=== PATIENT | female | born 1960 | race Caucasian/White ===

== ENCOUNTER 2017-01-30 02:21 | Inpatient (IN) | payer MEDICAID ==
[~2017-01-30] VITALS: Ht 167.6 cm; Wt 174.2 kg
--- NOTE | ~2017-01-30 | HP ---
PATIENT'S NAME: SIMON MEADE [facility] AGE: 56 Y [address] ROOM: [place] [address] LOCATION: GPCU ADMIT DATE: 01/30/2017 History & Physical DISCHARGE DATE: FAMILY PHYSICIAN: PHYSICIAN, UNKNOWN ATTENDING PHYSICIAN: MARK OSEGUERA V DATE OF SERVICE: CHIEF COMPLAINT: Purple fingers and chest pain. HISTORY OF PRESENT ILLNESS: The patient is a 56-year-old female, who has been transferred here from [place]. She has a past medical history of factor V Leiden with recurrent DVTs and PEs. In fact, the patient was found to have 2 new DVTs recently and was switched from Lovenox to Xarelto. This was approximately 10 days ago. Since then, she has been having episodes of discoloration and coldness of her fingers associated with hot flashes, as well as reddish discoloration of her face, as well as some "internal tremors." Today, she also developed left-sided flank pain and came to the ER in [place]. Initial suspicion was for recurrent PE, but a repeat CT of her chest with contrast revealed a chronic previously noted PE in the right basal lobar artery, as well as unchanged patchy ground-glass infiltrates in the left upper and right mid and lower lobes with a differential of fibrosis versus indwelling adenocarcinomas in C2. At the time of her evaluation in [place], as communicated to me by the provider there, she had profoundly discolored purplish fingertips with delayed capillary refill, but preserved pulses. At this point, I still appreciate some bluish discoloration, though certainly was worse before as described to me and as conveyed by her. I do not appreciate any discoloration or delayed capillary refill in her feet, however. She denies any worsening chest pain, nausea, vomiting, or syncope. The left flank pain, with which she presented, is actually well-reproducible and is associated with a collection of subscapular muscles. REVIEW OF SYSTEMS: All 10 systems have been reviewed and are negative aside from pertinent positives mentioned above. PAST MEDICAL HISTORY: Significant for: 1. Factor V Leiden, recurrent DVTs, PEs. PATIENT'S NAME: SIMON MEADE [facility] AGE: 56 Y [address] ROOM: [place] [id number] LOCATION: GPCU ADMIT DATE: 01/30/2017 History & Physical DISCHARGE DATE: FAMILY PHYSICIAN: PHYSICIAN, UNKNOWN ATTENDING PHYSICIAN: MARK OSEGUERA V 2. Aparna filter. 3. Essential hypertension. 4. Restless legs syndrome. 5. Super-morbid obesity due to excess calories. 6. Status post lap band. CURRENT MEDICATIONS: Being compiled by the nursing staff, but include Xarelto. PAST SURGICAL HISTORY: As above. FAMILY HISTORY: Significant for lung cancer in her mother at the age of 60 and quadruple bypass in her father in his 60s as well. PHYSICAL EXAMINATION: VITAL SIGNS: Blood pressure of 160/70, heart rate is in the 70s, saturating 96% on room air, afebrile, respirations are 16. GENERAL: Appears as morbidly obese, middle-aged female, in no acute distress. NEUROLOGIC: Nonfocal. HEENT: Eye exam shows pupils are equal and reactive to light. LYMPHATICS: No cervical lymphadenopathy. ENDOCRINE: No thyromegaly. LUNGS: Crackles in the right base, which are concordant with location of chronic PE. HEART: Regular rate and rhythm without appreciable murmurs, gallops, or rubs. GI: Abdomen is soft, nontender, nondistended. : No costovertebral angle tenderness. VASCULAR: 2+ pedal pulses as well as 2+ radial and ulnar pulses. SKIN: Some slight purplish discoloration of her fingertips with slightly delayed capillary refill. PSYCHIATRIC: Blunted affect and preserved mood and cognition. MUSCULOSKELETAL: An area of tenderness and a muscle knot right below her left scapula. LABORATORY DATA: Studies from the outside facility in addition to the CT are significant for an unremarkable CBC. A complete metabolic profile showing a BUN of 30, creatinine of 1.3, alkaline phosphatase is 186. EKG shows normal sinus rhythm at 89 beats per minute with no appreciable ST-segment or T-wave abnormalities. ASSESSMENT AND PLAN: This is a 56-year-old female, who will be admitted with: 1. Apparent Raynaud phenomenon after starting Xarelto. At this point, we PATIENT'S NAME: SIMON MEADE [facility] AGE: 56 Y [address] ROOM: [address] [address] LOCATION: GPCU ADMIT DATE: 01/30/2017 History & Physical DISCHARGE DATE: FAMILY PHYSICIAN: PHYSICIAN, UNKNOWN ATTENDING PHYSICIAN: MARK OSEGUERA V will certainly continue the patient on Xarelto. We will consider a Hematology consultation though I do not appreciate Raynaud's as a documented adverse reaction or side effect of Xarelto. We will request additional guidance from the Hematology consultation. We will consider starting the patient on calcium channel blockers for her presumed Raynaud. Hopefully, we can capture one of these episodes here. 2. Flank pain. This is musculoskeletal and we will provide her with a heating pad. 3. Elevated creatinine. The patient is not aware of any standing kidney issues. We will have to trend that and possibly hydrate her. Though we may have to pursue acute kidney injury/chronic kidney disease workup. 4. History of factor V Leiden with recurrent thromboembolism. We will continue the patient on anticoagulation. 5. Super-morbid obesity noted. 6. Essential hypertension. We will consider increasing her blood pressure medications versus adding Cardizem for her Raynaud's. 7. Additional management will depend on clinical course. 8. Potential adenocarcinoma in situ as read on the CAT scan. The patient will need a central communications specialist followup as outpatient. Findings appear to be stable, however. Time dedicated to this patient's encounter is 35 minutes. MD JHONATHAN CLAY/pina /[id number] D: 747 T: 437 HISTORY & PHYSICAL
--- NOTE | ~2017-01-30 | CON ---
PATIENT'S NAME: SIMON MEADE [facility] AGE: 56 Y [address] ROOM: [place] [address] LOCATION: GPCU ADMIT DATE: 01/30/2017 Consultation DISCHARGE DATE: 01/31/2017 FAMILY PHYSICIAN: Tara Perez ATTENDING PHYSICIAN: Kain Tsang DATE OF CONSULTATION: 01/31/2017 REFERRING PHYSICIAN: Roberto Benton MD INDICATION: Abnormal CT. HISTORY OF PRESENT ILLNESS: This is a 56-year-old female transferred from [place] with a history of factor V Leiden with multiple PEs and DVTs. She reports her last PE was about 8 years ago. She says that she has been on Lovenox for quite some time and then recently developed right knee pain and was subsequently found to have a new right leg DVT. At that time, she was changed to Xarelto which was about 10 days ago. Since then, she reports with any exertion. At work, she developed shortness of breath, ice cold hands that turn purple, internal shaking and trouble with her speech, as well as a redness in her cheeks. If she stops what she is doing, she returns to baseline after "warming" up. Yesterday along with the above-mentioned symptoms she also developed left-sided flank pain; therefore, she presented to the ER for further evaluation. CT of the chest showed chronic PE which was unchanged along with ground-glass opacities in the left upper, right mid and lower lobes. Currently, overall the patient denies any coughing, wheezing, hemoptysis, or edema. She has no history of asthma, COPD, or smoking. PAST MEDICAL HISTORY: 1. Includes factor V Leiden with recurrent DVTs and PEs. 2. [place] filter. 3. Hypertension. 4. Restless legs syndrome. 5. Morbid obesity. 6. History of lap band. ALLERGIES: SEE MAR. MEDICATIONS: See MAR. FAMILY HISTORY: Significant for lung cancer in her mother at the age of 60 and CAD in her PATIENT'S NAME: SIMON MEADE [facility] AGE: 56 Y [address] ROOM: [place] [address] LOCATION: GPCU ADMIT DATE: 01/30/2017 Consultation DISCHARGE DATE: 01/31/2017 FAMILY PHYSICIAN: Tara Perez ATTENDING PHYSICIAN: Kain Tsang A father. SOCIAL HISTORY: The patient works at the [employer] and denies any history of tobacco or alcohol use. REVIEW OF SYSTEMS: A 12-point review of systems negative except for what is noted in the HPI. PHYSICAL EXAMINATION: VITAL SIGNS: Blood pressure 139/74, pulse 94, respirations 20, temperature 98.5, she is 93% on room air. GENERAL: This is a 56-year-old well-developed, well-nourished, morbidly obese female who is alert and oriented x3 and appears in no acute distress at the time of exam. HEENT: Head; normocephalic and atraumatic. Eyes, clear. NECK: Supple. No adenopathy. No carotid bruits or JVD. LUNGS: Decreased breath sounds at the bases but overall clear. HEART: Regular rate and rhythm without murmur, gallop, or rub. ABDOMEN: Soft, nontender, nondistended. Bowel sounds x4. EXTREMITIES: No cyanosis, clubbing, or edema. DIAGNOSTIC DATA: Includes sodium 142, potassium 4.2, bicarb 24, BUN 26, creatinine 1. Procalcitonin 0.24. Rheumatoid factor negative. WBC 5, hemoglobin 11.3, hematocrit 36.2, platelets 180. JO ANN is pending. We reviewed the multiple chest CT images going back to 2007 in our system that showed stable bilateral opacities. ASSESSMENT: 1. Abnormal chest CT, most likely chronic pulmonary infarcts versus other inflammatory condition. Overall, this is very unlikely to be adenocarcinoma as it has not had a significant change in almost 10 years. 2. Recurrent deep venous thrombosis and pulmonary embolism, on Xarelto. 3. Factor V Leiden mutation leading to recurrent deep venous thrombosis and pulmonary embolism. 4. Morbid obesity. 5. History of obstructive sleep apnea with excessive daytime sleepiness. PLAN: Overall, no need for biopsy at this time. Would recommend repeating a chest CT in six months, and if no change, would not pursue further chest CTs. Will need to follow up on the final results of her blood test and recommend adding hypersensitivity pneumonitis panel to previous lab work. For her excessive daytime sleepiness and history of NII, she will need a sleep study as an PATIENT'S NAME: SIMON MEADE [facility] AGE: 56 Y [address] ROOM: [address] [address] LOCATION: GPCU ADMIT DATE: 01/30/2017 Consultation DISCHARGE DATE: 01/31/2017 FAMILY PHYSICIAN: Tara Perez ATTENDING PHYSICIAN: Kain Tsang outpatient. Overall, she is stable to be discharged from a pulmonary standpoint at this time. Thank you for the consult and opportunity to participate in this patient's care. KAILASH SERRANO APRN FOR DIANA GONZALEZ MD [facility]/modl /[id number] d: 02/16/17 0149 t: 03/01/17 1651, CONSULTATION REPORT
--- NOTE | ~2017-01-30 | CON ---
PATIENT'S NAME: SIMON MCNEILL [facility] AGE: 56 Y [address] ROOM: [address] [address] LOCATION: GPCU ADMIT DATE: 01/30/2017 Consultation DISCHARGE DATE: 01/31/2017 FAMILY PHYSICIAN: Tara Perez ATTENDING PHYSICIAN: Adin Szymanski V REFERRING PHYSICIAN: Roberto Benton MD This is a consult to Dr. Szymanski. Simon Mcneill is a 56-year-old woman, seen for evaluation of uncharacterized cyanosis of the tips of her fingers with a history of longstanding anticoagulation for deep venous thromboses and pulmonary emboli noted around 1988. Ms. Mcneill is hospitalized because she developed left chest pain on 01/30/2017 while working at the [employer]. The patient was seen in the [place] [facility] and a CAT scan of the chest was obtained, which revealed chronic changes in the right basal lobar artery compatible with an old pulmonary emboli. In [place], the patient had bluish discoloration of the tips of her fingers beyond the DIPs, though she had no pain. The patient had noticed this discoloration in this distribution throughout her shift at the [employer] over the past week and the possibility that this was a complication of rivaroxaban was contemplated since the patient had not experienced this discoloration in the past. The patient was transferred to [facility]. In [place], the CBC with differential was unremarkable. A complete metabolic profile was remarkable for an elevated alkaline phosphatase of 186 and a creatinine of 1.3 mg/dL. The patient reported when she was seen in [facility], the discoloration of the fingers had resolved. The CBC with differential at the [facility] was unremarkable this morning. The BMP was unremarkable this morning. The creatinine was down to 1. The quantitative rheumatoid factor at [facility] was less than 10 IU/mL. Ms. Mcneill first experienced deep venous thrombosis around 1988 following a motor vehicle trip from [place] to [place]. She developed deep venous thrombosis in her right leg. She was placed on heparin and then warfarin and was on these medications for approximately 13 years. Her warfarin had to be titrated up and down and ultimately, in the early 1999s, around 2001, she was placed on fondaparinux. The patient did well on fondaparinux with little bleeding or little in the way of complications. She saw Dr. Page Richmond annually. Dr. Richmond checked a heparin anti-Xa annually. On 01/26/2016, the level was 1.22 IU/mL, which was within normal limits for a patient taking myo-cwughabkl-oxmyyg heparin. The fondaparinux was apparently continued uneventfully until early January 2017 when the patient developed discomfort in her right leg. At that time, sonography in [place] revealed deep venous thrombosis. The patient is not sure the sonogram was compared to an earlier PATIENT'S NAME: SIMON MCNEILL [facility] AGE: 56 Y [address] ROOM: [place] [address] LOCATION: GPCU ADMIT DATE: 01/30/2017 Consultation DISCHARGE DATE: 01/31/2017 FAMILY PHYSICIAN: Tara Perez ATTENDING PHYSICIAN: Adin Szymanski V sonogram as she does not think she has ever had a sonogram in [place]. Her fondaparinux was discontinued and she was placed on rivaroxaban. The patient is concerned her rivaroxaban led to the discoloration in her digits and there is a concern the patient has the Raynaud phenomena. The patient currently lives in [place], [place], with her and another lodger. She works at the [employer] in [place], [place]. ACTIVE MEDICAL PROBLEMS, CHRONIC AND DIAGNOSED: 1. Class 3 obesity. The BMI is 61.5 kg/m2. 2. Arterial hypertension. The patient is currently on amlodipine for her hypertension. 3. Factor V Leiden mutation conferring resistance to activated protein-C. The patient does not know whether she is homozygous or heterozygous. Two relatives have experienced complications from thrombosis and have the Factor V Leiden mutation. 4. Presence of a Aparna filter. 5. Restless legs syndrome. ACUTE MEDICAL ILLNESSES (RESOLVED), PAST SURGERIES, INJURIES: Lap band surgery. MEDICATIONS UPON ADMISSION: 1. Rivaroxaban 15 mg p.o. b.i.d. 2. Acetaminophen p.r.n. 3. Albuterol inhaler p.r.n. 4. Alprazolam 1 mg p.o. b.i.d. 5. Aripiprazole 15 mg p.o. q.h.s. 6. Carbidopa levodopa 1 tablet p.o. q.h.s. 7. Colestipol 2 tablets 2 grams p.o. daily. 8. Duloxetine 60 mg p.o. b.i.d. 9. Fluticasone 1 spray nasally daily. 10. Gabapentin 600 mg p.o. t.i.d. 11. Lactobacillus. 12. Loperamide 2 mg every 4 hours as needed. 13. Loratadine 10 mg daily. 14. Mesalamine 1.5 p.o. daily. 15. KCl 20 mEq p.o. daily. 16. Ropinirole 3 mg p.o. b.i.d. 17. Bactrim DS 1 p.o. b.i.d. x4 days. 18. Tizanidine 4 mg p.o. q.h.s. 19. Topiramate 50 mg p.o. b.i.d. 20. Tramadol 50 to 100 p.o. t.i.d. 21. Valacyclovir 1000 mg p.o. every 8 hours p.r.n. for cold sores. PATIENT'S NAME: SIMON MCNEILL [facility] AGE: 56 Y [address] ROOM: [place] [address] [facility] ADMIT DATE: 01/30/2017 Consultation DISCHARGE DATE: 01/31/2017 FAMILY PHYSICIAN: Tara Perez ATTENDING PHYSICIAN: Adin Szymanski V ADVERSE REACTIONS TO MEDICATIONS: 1. Neomycin. 2. Bacitracin. 3. Venlafaxine (increased depression). 4. Quetiapine (increased depression). 5. Polymyxin B. TOBACCO: None. ALCOHOL: History not obtained. REVIEW OF SYSTEMS: Negative other than those noted in the history of present illness. PHYSICAL EXAMINATION: VITAL SIGNS: Pulse 84 and regular, blood pressure 135/65, respiratory rate 20, temperature 98.4, SPO2 of 95% on room air, height 66 inches, weight 172.8 kg (380 pounds), and BMI 62 kg/m2. GENERAL: Well-developed, obese, 56-year-old, female, in no acute distress. HEENT: Unremarkable. LYMPH NODES: None palpable in the cervical chain. SKIN: Unremarkable. CHEST: Decreased breath sounds bilaterally. CV: Decreased S1 and S2. No murmurs, bruits, or adventitious sounds. BREASTS: Pendulous. Not examined. ABDOMEN: Healed scar from the lap banding. Obese. EXTREMITIES: Bilateral brawny edema. No discoloration in the toes or fingers. No cyanosis. Homans sign negative. IMPRESSION: 1. Discoloration, etiology undetermined. I am not certain this is due to Raynaud phenomena. It was not associated with cold and the patient did not experience discomfort or this is what she says today. Raynaud phenomena is not generally associated with rivaroxaban to my knowledge. 2. Dr. Richmond will have a decision to make when the patient is seen next week. Rivaroxaban is generally not used in patients who have a body mass index greater than 40 kg/m2 due to lack of clinical data in this population. It is not clear the fondaparinux was at a therapeutic dose when it was discontinued 10 days ago in [place] and would have been reasonable to check anti-Xa activity to see if the patient was subtherapeutic. It would also have been reasonable to compare the most PATIENT'S NAME: SIMON MCNEILL [facility] AGE: 56 Y [address] ROOM: [place] [address] [facility] ADMIT DATE: 01/30/2017 Consultation DISCHARGE DATE: 01/31/2017 FAMILY PHYSICIAN: Tara Perez ATTENDING PHYSICIAN: Adin Szymanski V recent sonogram with an earlier sonogram, this might well have been done. PLAN: Diagnostic: 1. The patient will see Dr. Richmond in 1 week. She is ready for dismissal at this point. These arrangements have been made. 2. We will try to obtain the sonogram report as well as the records related to her recent switch from fondaparinux to rivaroxaban and rationale for fondaparinux which may be losing something the translation. Treatment: Continue rivaroxaban 15 mg p.o. b.i.d. for now. PATIENT EDUCATION: Encouraged her to keep her appointment with Dr. Richmond next week. MD NELIA PINA/pina /[id number] CC: CALVIN Guzman d: 02/01/17 0014 t: 02/02/17 1340, CONSULTATION REPORT
--- NOTE | ~2017-01-30 | DS ---
PATIENT'S NAME: SIMON MEADE [facility] AGE: 56 Y [address] ROOM: [address] [place], [place] [address] LOCATION: GPCU ADMIT DATE: 01/30/2017 Discharge Summary DISCHARGE DATE: 01/31/2017 FAMILY PHYSICIAN: Tara Perez ATTENDING PHYSICIAN: Adin Szymanski V PRINCIPAL DIAGNOSES: 1. Raynaud's phenomenon, unclear etiology primary or secondary. 2. Acute cystitis. 3. Acute kidney injury. 4. Morbid obesity. 5. Essential hypertension. 6. Ground glass opacities, abnormal chest CT. 7. History of deep vein thrombosis and pulmonary embolism with factor V Leiden. 8. Obstructive sleep apnea. HOSPITAL COURSE: A 56-year-old lady was transferred from [place], [place] with a past medical history factor V today with recurrent DVTs and PEs. She was recently switched from Lovenox to Xarelto for chief complaint of discoloration and blueness of her fingers associated with hot flashes as well as reddish discoloration of the face. She also complained of left-sided flank pain. We admitted this patient to the [facility] and a CAT scan of the chest was done, which did not reveal any acute pulmonary embolism, but did reveal previous chronic PE. She always have multiple unchanged ground-glass patchy opacities and the radiology read one of the differential diagnosis of adenocarcinoma in situ. She was admitted to our progressive care unit. We stop her beta alta and start her on amlodipine to control blood pressure as well as Raynaud phenomena. Unclear etiology at this point and we have sent all the rheumatological workup and send out lab and most of it is pending at this point. That needs to be followed by the primary care physician. Pulmonology consultation was obtained regarding evaluation of ground glass patchy opacities and I think that this is secondary to the pulmonary embolism infarcts in the past. They did recommend [address] follow up with a primary care physician at this point. We will have her have a followup with PCP with those labs as well as we will have her follow up with Dr. Richmond who is her pig lead melter helper regarding the factor Leiden V. she also had urinary urgency on admission. UA was obtained, which was grossly positive for pyuria. She was started on Rocephin, which she received one dose. Her urine sample was mostly consistent with contaminants. We are going to send her home on Bactrim for 4 more days. NEW MEDICATION: 1. Potassium chloride 20 milliequivalent p.o. every day. 2. Alprazolam 1 mg p.o. twice daily. PATIENT'S NAME: SIMON MEADE [facility] AGE: 56 Y [address] ROOM: [place] [address] LOCATION: GPCU ADMIT DATE: 01/30/2017 Discharge Summary DISCHARGE DATE: 01/31/2017 FAMILY PHYSICIAN: Tara Perez ATTENDING PHYSICIAN: Adin Szymanski V 3. Lisinopril 10 mg p.o. every day. 4. Amlodipine 10 mg p.o. every day. 5. Abilify 50 mg p.o. every night at bedtime. 6. Colestipol 2 g p.o. every day. 7. Duloxetine 60 mg p.o. twice daily. 8. Fluticasone/Flonase 50 mcg one spray nose every day p.r.n. 9. Gabapentin 600 mg p.o. 3 times daily. 10. Loratadine 10 mg p.o. every day. 11. Rivaroxaban 15 mg p.o. b.i.d. 12. Tizanidine 4 mg p.o. every night at bedtime. 13. Topamax 50 mg p.o. twice daily. 14. Ropinirole 6 mg p.o. twice daily. 15. Lasix 40 mg p.o. every day. We are going to hold this medication on discharge: 1. Carbidopa levodopa 2500 mg 1 tablet p.o. every night at bedtime. 2. Valacyclovir 1000 mg p.o. every 8 hours for the breakouts. 3. Tramadol 50 to 100 mg p.o. 3 times daily. 4. Loperamide 2 mg p.o. every 4 hours p.r.n. 5. Mesalamine 0.375 g daily. 6. Tylenol 500 mg p.o. every 6 hours p.r.n. 7. Albuterol 8.5 mg 2 puffs inhalation every 6 hours. New medication: Bactrim DS b.i.d. for 4 days. She can see her primary care physician and then Lasix can be restarted as her creatinine was elevated and she did have acute kidney injury during this hospitalization. DIET: Low-sodium diet. FOLLOWUP: Follow up as mentioned in the hospital course. Hemodynamics on discharge is stable. We spent 40 minutes in discharge planning and discharge care of this patient. MD YULY PAYNE/pina /[id number] d: 02/01/17 0842 t: 02/04/17 1503, DISCHARGE SUMMARY
[~2017-01-30 02:21] MED LIST: ABILIFY15 MG PO; ABILIFY2 MG PO; ADDERALL 20 MG20 MG PO; CLARITIN10 M3 PO; CYMBALTA30 MG PO; FEOSOL325 MG PO; FONDAPARINUX SUB-Q; K-TAB ER20 MEQ PO; LASIX40 MG PO; LEXAPRO10 MG PO; LISINOPRIL10 MG PO; MOTRIN600 MG PO; NEURONTIN600 MG PO; PROTONIX40 MG PO; REQUIP3 MG PO; SINEMET 25-1001 EACH PO; TOPAMAX50 MG PO; TOPROL XL25 MG PO; TRAMADOL HCL50 MG PO; VALTREX1000 MG PO; XANAX1 MG PO; ZANAFLEX4 MG PO
--- NOTE | 2017-01-30 06:48 | NUR ---
ADMIT NOTE: A/O X 3. COLOR FLUSHED. SKIN W/D. ARRIVED FROM [facility], VIA AMBULANCE. C/O HANDS BEING COLD/PURPLE. HAS LT. LOWER BACK/SIDE PAIN. NO CHEST PAIN. SHORT OF BREATH ALL THE TIME. FACTOR 5 LYDIN DISEASE. HX;OF PE X 4 AND CARMEN. LOWER EXT. DVTS. CT OF CHEST NORMAL FROM [facility]. PLAN: CONT. CARES AT [facility]
[2017-01-30] MEDS ORDERED: COLESTID1 GM PO (07:34)
[2017-01-30] MEDS ORDERED: FLONASE 50 MCG/16 GM NOSE (07:35)
[2017-01-30] MEDS ORDERED: IMODIUM2 MG PO (07:43)
[2017-01-30] MEDS ORDERED: APRISO0.375 GM PO (07:44)
[2017-01-30] MEDS ORDERED: XARELTO15 MG PO ×2 (07:45→07:46)
[2017-01-30] MEDS ORDERED: TYLENOL EXTRA500 MG PO (07:45)
[2017-01-30 10:17] LABS: BASOPHIL % 0.7 %; EOSINOPHIL # 0.6 K/uL (0.0-0.5); EOSINOPHIL % 11.5 %; HEMATOCRIT 37.7 % (33.0-46.0); HEMOGLOBIN 11.9 g/dL (10.0-15.0); IMMATURE GRANULOCYTE % 0.4 %; LYMPHOCYTE % 18.9 %; MCH 29.9 pg (27.0-34.0); MCHC 31.6 gm/dL (32.0-36.5); MCV 94.7 fl (83.0-98.0); MONOCYTE # 0.5 K/uL (0.0-1.0); MONOCYTE % 8.5 %; NEUTROPHIL # (ANC) 3.3 K/uL (1.8-7.8); NRBC % 0 /100WBC (0-0.00); PLATELET COUNT 180 K/uL (150-450); RDW-CV 13.6 % (11.9-14.6); WBC 5.5 K/uL (4.0-11.0)
[2017-01-30 10:18] LABS: RBC 3.98 M/uL (3.50-5.50)
[2017-01-30 11:04] LABS: ANION GAP 11.9 (10.0-19.0); CALCIUM 8.4 mg/dL (8.5-10.5); CREATININE 1.2 mg/dL (0.5-1.1); MAGNESIUM 1.9 mg/dL (1.8-2.6); PHOSPHORUS 3.3 mg/dL (2.5-4.9); POTASSIUM 3.9 mMol/L (3.7-5.1)
[2017-01-30 18:19] LABS: BASOPHIL % 0.8 %; EOSINOPHIL # 0.7 K/uL (0.0-0.5); EOSINOPHIL % 14.7 %; HEMATOCRIT 39.6 % (33.0-46.0); HEMOGLOBIN 12.3 g/dL (10.0-15.0); IMMATURE GRANULOCYTE % 0.2 %; LYMPHOCYTE # 1.2 K/uL (0.8-4.0); LYMPHOCYTE % 23.3 %; MCH 29.7 pg (27.0-34.0); MCHC 31.1 gm/dL (32.0-36.5); MCV 95.7 fl (83.0-98.0); MONOCYTE # 0.4 K/uL (0.0-1.0); MONOCYTE % 8.2 %; MPV 10.5 fl (9.4-12.4); NEUTROPHIL # (ANC) 2.6 K/uL (1.8-7.8); NEUTROPHIL % 52.8 %; NRBC % 0 /100WBC (0-0.00); PLATELET COUNT 186 K/uL (150-450); RBC 4.14 M/uL (3.50-5.50); RDW-CV 13.6 % (11.9-14.6)
--- NOTE | 2017-01-30 19:26 | NUR ---
PATIENT UP TO BR W/ 1 ASSIST, UNSTEADY AND C/O RIGHT FOOT PAIN WHEN AMBULATING. NO C/O PAIN WHEN AT REST. SHORT OF BREATH, NO CHEST PAIN. VSS, SATS MID 90'S ON RA. PULMONOLOGY AND HEMATOLOGY CONSULT, DR RAE STATED HE NOTIFIED. DR RAE NOTIFIED OF 18:00 LABS, WITH NO NEW ORDERS.
[2017-01-30 20:08] LABS: BILIRUBIN URINE NEGATIVE (NEGATIVE); BLOOD URINE 10 /UL (NEGATIVE); COLOR URINE YELLOW (YELLOW); GLUCOSE URINE NEGATIVE (NEGATIVE); KETONE URINE NEGATIVE (NEGATIVE); LEUKOCYTES URINE 500 /UL (NEGATIVE); NITRITE URINE NEGATIVE (NEGATIVE); PROTEIN URINE NEGATIVE (NEGATIVE); TURBIDITY URINE 2+ (CLEAR); UROBILINOGEN URINE NORMAL (NORMAL)
[2017-01-30 20:21] LABS: RBC URINE 0-2 #/HPF (NEGATIVE)
[2017-01-30 20:23] LABS: AMORPHOUS URINE 1+ (NEGATIVE); BACTERIA URINE FEW (NEGATIVE); EPITHELIAL URINE 20-50 #/HPF (NEGATIVE)
[2017-01-31 03:20] LABS: BASOPHIL % 0.6 %; EOSINOPHIL # 0.8 K/uL (0.0-0.5); EOSINOPHIL % 16.5 %; HEMATOCRIT 36.2 % (33.0-46.0); HEMOGLOBIN 11.3 g/dL (10.0-15.0); IMMATURE GRANULOCYTE % 0.4 %; LYMPHOCYTE # 1.6 K/uL (0.8-4.0); LYMPHOCYTE % 31.9 %; MCH 29.7 pg (27.0-34.0); MCHC 31.2 gm/dL (32.0-36.5); MCV 95.3 fl (83.0-98.0); MONOCYTE # 0.5 K/uL (0.0-1.0); MPV 10.3 fl (9.4-12.4); NEUTROPHIL # (ANC) 2.1 K/uL (1.8-7.8); NEUTROPHIL % 41.6 %; NRBC % 0 /100WBC (0-0.00); PLATELET COUNT 180 K/uL (150-450); RDW-CV 13.5 % (11.9-14.6)
[2017-01-31 03:39] LABS: ANION GAP 10.2 (10.0-19.0); CALCIUM 8.6 mg/dL (8.5-10.5); POTASSIUM 4.2 mMol/L (3.7-5.1)
--- NOTE | 2017-01-31 04:20 | NUR ---
Significant Event: PATIENT IS A/O X3. VSS. HR'S 70-80'S. SBP 120'S. AFEBRILE. 02 SATS IN MID 90'S ON RA. NO C/O PAIN. LUNGS CLEAR THROUGHOUT. VERY SOB WITH ACTIVITY. C/O RIGHT FOOT PAIN WITH AMBULATION. BOWELS ACTIVE. C/O LOOSE STOOLS. HAS URGENCY IN VOID ALONG WITH SOME STRESS INCONTINENCE. COMMODE AT BEDSIDE. NEW HAT IN COMMODE TO COLLECT A UA. NEW IV TO RIGHT THUMB WITH LR AT 75ML/HR. CONTINUES TO HAVE GENERALIZED 1+ EDEMA. Follow up: PULMONOLGY/HEMETOLOGY CONSULTS IN AM.
[2017-01-31] MEDS ORDERED: PROAIR HFA8.5 GM INH (09:55)
--- NOTE | 2017-01-31 13:12 | NUR ---
1154 Stopped by to see Kristi, but per DIAL POLISHER she was in the shower. Will try to stop back by and see later today or tomorrow. CM to continue to follow and assist.
[2017-01-31] MEDS ORDERED: NORVASC10 MG PO (16:48)
[2017-01-31] MEDS ORDERED: BACTRIM DS1 TAB PO (17:00)
[2017-01-31] MEDS ORDERED: PROBIOTIC1 EAC1 PO (17:02)
== END 2017-01-31 18:40 | disposition disaster alternative care site (69) | DRG 546 ==
LOC: GPCU 02:21
PROVIDERS: Internal Medicine; ADMIT Internal Medicine
DX: I73.00 Raynaud's syndrome without gangrene (principal); Z68.44 Body mass index [BMI] 60.0-69.9, adult; D68.2 Hereditary deficiency of other clotting factors; N30.00 Acute cystitis without hematuria; I82.491 Acute embolism and thrombosis of other specified deep vein of right lower extremity; E66.01 Morbid (severe) obesity due to excess calories; I10 Essential (primary) hypertension; Z86.718 Personal history of other venous thrombosis and embolism; Z86.711 Personal history of pulmonary embolism; Z79.01 Long term (current) use of anticoagulants; G25.81 Restless legs syndrome; Z98.84 Bariatric surgery status; G47.33 Obstructive sleep apnea (adult) (pediatric); Z79.899 Other long term (current) drug therapy
CPT/HCPCS: J0696; J7050; J7120

== ENCOUNTER → 2017-02-11 | Outpatient (CLI) | payer MEDICAID ==
[~2017-02-11] MED LIST changes: +APRISO0.375 GM PO; +BACTRIM DS1 TAB PO; +COLESTID1 GM PO; +FLONASE 50 MCG/16 GM NOSE; +IMODIUM2 MG PO; +NORVASC10 MG PO; +PROAIR HFA8.5 GM INH; +PROBIOTIC1 EAC1 PO; +TYLENOL EXTRA500 MG PO; +XARELTO15 MG PO
--- NOTE | ~2017-02-11 | ENPV ---
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 Patient Status:Routine. Study Location:Vascular Lab. Technical Quality:Limited visualization due to body habitus. - Preliminary reported to:Abel Reis MD. Velocities are measured in cm/s ; Diameters are measured in cm Right Lower Extremities DVT Study Measurements Right 2D and Doppler Measurements + + + + +------+------+ + !Location !Visualized!Compressibility!Thrombosis!Signal!Reflux!Reflux ! ! ! ! ! ! ! !(sec) ! + + + + +------+------+ + !GSV Thigh !Yes !Yes !None !Phasic!No ! ! + + + + +------+------+ + !Common !Yes !Yes !None !Phasic!No ! ! !Femoral ! ! ! ! ! ! ! + + + + +------+------+ + !Prox !Yes !Yes !None !Phasic!No ! ! !Femoral ! ! ! ! ! ! ! + + + + +------+------+ + !Mid Femoral!Yes !Yes !None !Phasic!No ! ! + + + + +------+------+ + !Dist !Yes !Yes !None !Phasic!No ! ! !Femoral ! ! ! ! ! ! ! + + + + +------+------+ + !Popliteal !Yes !Yes !None !Phasic!No ! ! + + + + +------+------+ + !Gastroc !Yes !Yes !None !Phasic!No ! ! + + + + +------+------+ + !PTV !Yes !Yes !None !Phasic!No ! ! + + + + +------+------+ + !Peroneal !Yes !Yes !None !Phasic!No ! ! + + + + +------+------+ + Left Lower Extremities DVT Study Measurements Left 2D and Doppler Measurements + + + + +------+------+ + !Location !Visualized!Compressibility!Thrombosis!Signal!Reflux!Reflux ! ! ! ! ! ! ! !(sec) ! + + + + +------+------+ + !Common !Yes !Yes !None ! ! ! ! !Femoral ! ! ! ! ! ! ! + + + + +------+------+ + Impressions Right Impression Negative for DVT Left Impression Negative for DVT at comparison site LT CFV Signature dtt: SANDEE ALBERT dtd: 02/11/17 1355 Physician Self Edit
== END | disposition disaster alternative care site (69) ==
LOC: GCAR 13:38
DX: I82.401 Acute embolism and thrombosis of unspecified deep veins of right lower extremity (principal)